=== PATIENT | female | born 1940 | race Caucasian/White ===

== ENCOUNTER 2021-11-20 12:55 | Inpatient (IN) | payer MEDICARE ==
[~2021-11-20] VITALS: Ht 152.4 cm; Wt 41.1 kg
[~2021-11-20 12:55] MED LIST: ASPI-1450 PO; CHL25 PO; CHOL100018 PO; LISI-894 PO; SIMV-261 PO
[2021-11-20] MEDS ORDERED: MIRT-89 PO (13:16)
[2021-11-20] MEDS ORDERED: MULT-1251 PO (13:16)
[2021-11-20] MEDS ORDERED: ALBUTEROL SULFATE HFA 90 MCG/PUFF 8 GM INHALER IH ONE (14:15)
[2021-11-20 14:48] LABS: BASOPHILS % (AUTO) 0.8 % (0.0-2.0); EOSINOPHILS % (AUTO) 0 % (1.0-6.0); HEMATOCRIT 43.9 % (36-46); HEMOGLOBIN 14.8 g/dL (12.0-16.0); LYMPHOCYTES # (AUTO) 0.5 K/uL (1.0-4.8); LYMPHOCYTES % (AUTO) 3.2 % (22.0-44.0); MEAN CORPUSCULAR HEMOGLOBIN 29.3 pg (26.0-34.0); MEAN CORPUSCULAR HGB CONC 33.7 G/dL (31.0-37.0); MEAN CORPUSCULAR VOLUME 87 fL (80-100); MONOCYTES # (AUTO) 1.6 K/uL (0.1-1.0); MONOCYTES % (AUTO) 9.6 % (2.0-9.0); NEUTROPHILS # (AUTO) 14.7 K/uL (1.8-7.7); PLATELET COUNT (AUTO) 427 K/uL (150-450); RED BLOOD CELL COUNT(AUTO) 5.06 MIL/uL (4.00-5.20); RED CELL DISTRIBUTION WIDTH 13.2 % (11.5-14.5)
[2021-11-20 14:52] LABS: NEUTROPHILS % (AUTO) 86.4 % (40.0-70.0)
[2021-11-20 15:02] LABS: ABG BASE EXCESS 0.9 mmol/L (-2.0-3.0); ABG CARBOXYHEMOGLOBIN 0.5 % (0.0-1.5); ABG HCO3 24.9 mmol/L (22.0-26.0); ABG METHEMOGLOBIN 0.1 % (0.0-1.5); ABG OXYGEN CONTENT 18.6 mL/dL (15.0-23.0); ABG OXYGEN SATURATION 92.4 % (95.0-98.0); ABG OXYHEMOGLOBIN 91.8 % (94.0-100.0); ABG PCO2 43 mmHg (35-45); ABG PH 7.394 (7.35-7.450); ABG TOTAL HEMOGLOBIN 14.4 G/dL (12.0-18.0); PO2, ARTERIAL BG 62.3 mmHg (71.0-79.0); SOURCE, BLOOD GAS ARTERIAL; TEMPERATURE, FAHRENHEIT, BG 98.3 FAHREN (96.0-98.6)
[2021-11-20 15:03] LABS: SITE, BLOOD GAS LFT RADIAL
[2021-11-20 15:04] LABS: D-DIMER 4.03 mg/L FEU (0.00-0.50); PROTHROMBIN TIME 10.3 SEC (9.4-11.6)
[2021-11-20 15:04] LABS: O2 DEVICE,BLOOD GAS NON REBREATHER (ROOM AIR)
[2021-11-20 15:11] LABS: CREATININE 2.62 mg/dL (0.60-1.30); POTASSIUM 4.3 mmol/L (3.5-5.1)
[2021-11-20 15:19] LABS: LACTIC ACID 1.7 mmol/L (0.4-2.0)
[2021-11-20 15:36] LABS: BILIRUBIN,TOTAL 0.8 mg/dL (0.1-1.0); C-REACTIVE PROTEIN QUANT 20.98 mg/dL (0.00-0.30); TOTAL PROTEIN, SERUM 8.8 g/dL (6.4-8.2)
[2021-11-20] MEDS ORDERED: CefTRIAXone 1 GM/DEXTROSE 50 ML IV ONE (16:30)
[2021-11-20] MEDS ORDERED: SODIUM CHLORIDE 0.9% 1,000 ML IV ONE ×3 (16:30→18:00)
[2021-11-20] MEDS ORDERED: AZITHROMYCIN 500 MG/NS 250 ML IV ONE (16:30)
[2021-11-20 17:18] LABS: INFLUENZA TYPE A NEGATIVE FOR TYPE A (NEGATIVE); INFLUENZA TYPE B NEGATIVE FOR TYPE B (NEGATIVE)
[2021-11-20] MEDS: ASPIRIN 81 MG CHEWABLE TABLET PO SCH (17:30)
[2021-11-20] MEDS ORDERED: DEXAMETHASONE SOD PHOS 4 MG/ML VIAL IVP SCH (17:30)
[2021-11-20] MEDS ORDERED: DEXAMETHASONE SOD PHOS 4 MG/ML 5 ML VIAL IVP ONE (17:45)
[2021-11-20] MEDS ORDERED: BENZONATATE 100 MG CAPSULE PO PRN (17:45)
[2021-11-20] MEDS ORDERED: ALBUTEROL SULFATE HFA 90 MCG/PUFF 8 GM INHALER IH PRN (17:45)
[2021-11-20] MEDS: APIXABAN 2.5 MG TABLET PO SCH (21:00)
[2021-11-20] MEDS ORDERED: HEPARIN SODIUM,PORCINE 5,000 UNITS/ML VIAL SQ SCH (21:00)
[2021-11-20 23:50] VITALS: BP 92/48
[2021-11-21] VITALS (11 sets, daily range): BP systolic 87–129; BP diastolic 40–73
[2021-11-21] MEDS: APIXABAN 2.5 MG TABLET PO SCH ×2 (09:01→20:05)
[2021-11-21] MEDS: ASPIRIN 81 MG CHEWABLE TABLET PO SCH (09:01)
[2021-11-21] MEDS: DEXAMETHASONE SOD PHOS 4 MG/ML VIAL IVP SCH (09:10)
[2021-11-21 12:52] LABS: BASOPHILS % (AUTO) 0.1 % (0.0-2.0); EOSINOPHILS % (AUTO) 0 % (1.0-6.0); HEMATOCRIT 36.3 % (36-46); HEMOGLOBIN 12.2 g/dL (12.0-16.0); LYMPHOCYTES # (AUTO) 0.6 K/uL (1.0-4.8); LYMPHOCYTES % (AUTO) 2.6 % (22.0-44.0); MEAN CORPUSCULAR HEMOGLOBIN 29.3 pg (26.0-34.0); MEAN CORPUSCULAR HGB CONC 33.6 G/dL (31.0-37.0); MEAN CORPUSCULAR VOLUME 87 fL (80-100); MONOCYTES # (AUTO) 0.5 K/uL (0.1-1.0); MONOCYTES % (AUTO) 2.4 % (2.0-9.0); NEUTROPHILS # (AUTO) 21.1 K/uL (1.8-7.7); NEUTROPHILS % (AUTO) 94.9 % (40.0-70.0); PLATELET COUNT (AUTO) 385 K/uL (150-450); RED BLOOD CELL COUNT(AUTO) 4.16 MIL/uL (4.00-5.20); RED CELL DISTRIBUTION WIDTH 13.2 % (11.5-14.5)
[2021-11-21 13:15] LABS: CREATININE 1.29 mg/dL (0.60-1.30); POTASSIUM 3.9 mmol/L (3.5-5.1)
[2021-11-21] MEDS: CefTRIAXone 1 GM/DEXTROSE 50 ML IV SCH (17:33)
[2021-11-21] MEDS: AZITHROMYCIN 500 MG/NS 250 ML IV SCH (17:33)
[2021-11-21] MEDS ORDERED: RINGERS SOLUTION,LACTATED 1,000 ML IV ONE ×3 (20:27→22:30)
[2021-11-21] MEDS ORDERED: RINGERS SOLUTION,LACTATED 500 ML IV ONE (21:45)
[2021-11-21] MEDS ORDERED: PNEUMOCOCCAL VACCINE POLYVALENT 0.5 ML VIAL [PPSV23] IM. ONE (22:00)
[2021-11-21] MEDS ORDERED: INFLUENZA VIRUS VACCINE QVS 2021-22 (6MO+)/PF 60 MCG/0.5 ML SYRINGE IM. ONE (22:00)
[2021-11-22 02:55] VITALS: BP 101/42
[2021-11-22 04:20] LABS: APPEARANCE,URINE CLEAR (CLEAR); BILIRUBIN,URINE NEGATIVE (NEGATIVE); GLUCOSE, URINE (UA) NEGATIVE (NEGATIVE); KETONES,URINE TRACE mg/dL (NEGATIVE); LEUKOCYTE ESTERASE ,URINE NEGATIVE (NEGATIVE); NITRATE,URINE NEGATIVE (NEGATIVE); OCCULT BLOOD,URINE NEGATIVE (NEGATIVE); PH,URINE 5.5 (5.0-8.0); PROTEIN,URINE NEGATIVE (NEGATIVE)
[2021-11-22 04:21] LABS: BACTERIA,URINE Rare /HPF (None Seen); RBC,URINE 0-2 /HPF (0-2); WBC,URINE 0-2 /HPF (0-5)
[2021-11-22 07:21] VITALS: BP 119/48
[2021-11-22 08:04] LABS: ALANINE AMINOTRANSFERASE 9 U/L (12-78); ALBUMIN 1.8 g/dL (3.4-5.0); ALKALINE PHOSPHATASE 84 U/L (46-116); ANION GAP 6 mmol/L (8-16); ASPARTATE AMINOTRANSFERASE 10 U/L (15-37); BILIRUBIN,TOTAL 0.3 mg/dL (0.1-1.0); CALCIUM, TOTAL 9.4 mg/dL (8.8-10.5); CARBON DIOXIDE 27 mmol/L (22-29); CHLORIDE 107 mmol/L (98-107); CREATININE 0.87 mg/dL (0.60-1.30); FERRITIN 479 ng/mL (8-252); GLUCOSE,RANDOM 107 mg/dL (70-110); POTASSIUM 4.1 mmol/L (3.5-5.1); SODIUM SERUM 140 mmol/L (136-145); TOTAL PROTEIN, SERUM 5.9 g/dL (6.4-8.2); UREA NITROGEN, BLOOD 83 mg/dL (7-18)
[2021-11-22 08:10] LABS: GLOMERULAR FILTR. RATE CALC > 60 mL/min (>60)
[2021-11-22] MEDS: ASPIRIN 81 MG CHEWABLE TABLET PO SCH (09:10)
[2021-11-22] MEDS: DEXAMETHASONE SOD PHOS 4 MG/ML VIAL IVP SCH (09:10)
[2021-11-22] MEDS: APIXABAN 2.5 MG TABLET PO SCH ×2 (09:10→20:10)
[2021-11-22 10:33] VITALS: BP 105/45
[2021-11-22] MEDS ORDERED: REMDESIVIR 200 MG in SODIUM CHLORIDE 0.9% 250 ML IV ONE (12:45)
[2021-11-22 14:50] VITALS: BP 102/48
[2021-11-22] MEDS ORDERED: ONDANSETRON HCL 4 MG/2 ML VIAL IVP PRN (15:30)
[2021-11-22] MEDS ORDERED: ACETAMINOPHEN 325 MG TABLET PO PRN (15:30)
[2021-11-22] MEDS: CefTRIAXone 1 GM/DEXTROSE 50 ML IV SCH (15:41)
[2021-11-22] MEDS: HEPARIN SODIUM,PORCINE 5,000 UNITS/ML VIAL SQ SCH ×2 (16:22→23:05)
[2021-11-22] MEDS: AZITHROMYCIN 500 MG/NS 250 ML IV SCH (17:43)
[2021-11-22 19:55] VITALS: BP 98/48
[2021-11-22] MEDS: FAMOTIDINE 20 MG TABLET PO SCH (20:10)
[2021-11-22] MEDS: DOCUSATE SODIUM 100 MG CAPSULE PO SCH (20:10)
[2021-11-22 23:55] VITALS: BP 137/59
[2021-11-23 05:37] VITALS: BP 126/59
[2021-11-23 07:06] LABS: BASOPHILS % (AUTO) 0.1 % (0.0-2.0); EOSINOPHILS % (AUTO) 0 % (1.0-6.0); HEMATOCRIT 33.8 % (36-46); HEMOGLOBIN 11.5 g/dL (12.0-16.0); LYMPHOCYTES # (AUTO) 0.6 K/uL (1.0-4.8); LYMPHOCYTES % (AUTO) 2.7 % (22.0-44.0); MEAN CORPUSCULAR HEMOGLOBIN 30.5 pg (26.0-34.0); MEAN CORPUSCULAR VOLUME 90 fL (80-100); MONOCYTES # (AUTO) 0.9 K/uL (0.1-1.0); NEUTROPHILS # (AUTO) 20.3 K/uL (1.8-7.7); PLATELET COUNT (AUTO) 414 K/uL (150-450); RED BLOOD CELL COUNT(AUTO) 3.77 MIL/uL (4.00-5.20)
[2021-11-23 07:14] LABS: NEUTROPHILS % (AUTO) 93.2 % (40.0-70.0)
[2021-11-23 07:22] VITALS: BP 116/54
[2021-11-23 07:41] LABS: ALANINE AMINOTRANSFERASE 9 U/L (12-78); ALBUMIN 1.9 g/dL (3.4-5.0); ALKALINE PHOSPHATASE 82 U/L (46-116); ANION GAP 7 mmol/L (8-16); ASPARTATE AMINOTRANSFERASE 11 U/L (15-37); BILIRUBIN,TOTAL 0.3 mg/dL (0.1-1.0); C-REACTIVE PROTEIN QUANT 10.69 mg/dL (0.00-0.30); CALCIUM, TOTAL 9.4 mg/dL (8.8-10.5); CARBON DIOXIDE 31 mmol/L (22-29); CHLORIDE 109 mmol/L (98-107); CREATINE KINASE, TOTAL ONLY 41 U/L (26-192); CREATININE 0.63 mg/dL (0.60-1.30); FERRITIN 410 ng/mL (8-252); GLUCOSE,RANDOM 119 mg/dL (70-110); LACTATE DEHYDROGENASE 170 U/L (81-234); POTASSIUM 4.1 mmol/L (3.5-5.1); SODIUM SERUM 147 mmol/L (136-145); TOTAL PROTEIN, SERUM 6.2 g/dL (6.4-8.2); UREA NITROGEN, BLOOD 66 mg/dL (7-18)
[2021-11-23 07:42] LABS: GLOMERULAR FILTR. RATE CALC > 60 mL/min (>60)
[2021-11-23] MEDS: DOCUSATE SODIUM 100 MG CAPSULE PO SCH ×2 (08:08→20:38)
[2021-11-23] MEDS: APIXABAN 2.5 MG TABLET PO SCH ×2 (08:09→20:38)
[2021-11-23] MEDS: DEXAMETHASONE SOD PHOS 4 MG/ML VIAL IVP SCH (08:10)
[2021-11-23] MEDS: HEPARIN SODIUM,PORCINE 5,000 UNITS/ML VIAL SQ SCH (08:10)
[2021-11-23] MEDS: ASPIRIN 81 MG CHEWABLE TABLET PO SCH (08:10)
[2021-11-23] MEDS: FAMOTIDINE 20 MG TABLET PO SCH ×2 (08:10→20:38)
[2021-11-23 11:08] VITALS: BP 124/52
[2021-11-23] MEDS: REMDESIVIR 100 MG in SODIUM CHLORIDE 0.9% 250 ML IV SCH (14:49)
[2021-11-23 16:46] VITALS: BP 111/63
[2021-11-23] MEDS: CefTRIAXone 1 GM/DEXTROSE 50 ML IV SCH (17:03)
[2021-11-23] MEDS: AZITHROMYCIN 500 MG/NS 250 ML IV SCH (18:31)
[2021-11-23 20:32] VITALS: BP 102/57
[2021-11-23] MEDS ORDERED: ENOXAPARIN SODIUM 40 MG/0.4 ML PF SYRINGE SQ SCH (21:00)
[2021-11-23 23:35] VITALS: BP 137/64
[2021-11-24 03:12] VITALS: BP 130/64
[2021-11-24 06:32] LABS: BASOPHILS % (AUTO) 0.1 % (0.0-2.0); EOSINOPHILS % (AUTO) 0 % (1.0-6.0); HEMATOCRIT 34.3 % (36-46); LYMPHOCYTES # (AUTO) 0.7 K/uL (1.0-4.8); MEAN CORPUSCULAR HEMOGLOBIN 31.9 pg (26.0-34.0); MEAN CORPUSCULAR HGB CONC 35.1 G/dL (31.0-37.0); MEAN CORPUSCULAR VOLUME 91 fL (80-100); MONOCYTES # (AUTO) 0.7 K/uL (0.1-1.0); MONOCYTES % (AUTO) 4.1 % (2.0-9.0); NEUTROPHILS # (AUTO) 15.6 K/uL (1.8-7.7); PLATELET COUNT (AUTO) 368 K/uL (150-450); RED BLOOD CELL COUNT(AUTO) 3.77 MIL/uL (4.00-5.20); RED CELL DISTRIBUTION WIDTH 13.2 % (11.5-14.5)
[2021-11-24 06:38] LABS: NEUTROPHILS % (AUTO) 91.8 % (40.0-70.0)
[2021-11-24 07:05] LABS: ALANINE AMINOTRANSFERASE 10 U/L (12-78); ALBUMIN 2.1 g/dL (3.4-5.0); ALKALINE PHOSPHATASE 82 U/L (46-116); ANION GAP 2 mmol/L (8-16); ASPARTATE AMINOTRANSFERASE 10 U/L (15-37); BILIRUBIN,TOTAL 0.3 mg/dL (0.1-1.0); C-REACTIVE PROTEIN QUANT 7.38 mg/dL (0.00-0.30); CALCIUM, TOTAL 9.3 mg/dL (8.8-10.5); CARBON DIOXIDE 35 mmol/L (22-29); CHLORIDE 110 mmol/L (98-107); CREATININE 0.64 mg/dL (0.60-1.30); FERRITIN 321 ng/mL (8-252); GLUCOSE,RANDOM 89 mg/dL (70-110); POTASSIUM 3.6 mmol/L (3.5-5.1); SODIUM SERUM 147 mmol/L (136-145); TOTAL PROTEIN, SERUM 6.4 g/dL (6.4-8.2); UREA NITROGEN, BLOOD 48 mg/dL (7-18)
[2021-11-24 07:06] LABS: GLOMERULAR FILTR. RATE CALC > 60 mL/min (>60)
[2021-11-24 07:21] VITALS: BP 139/72
[2021-11-24] MEDS: DEXAMETHASONE SOD PHOS 4 MG/ML VIAL IVP SCH (08:03)
[2021-11-24] MEDS: APIXABAN 2.5 MG TABLET PO SCH ×2 (08:03→20:50)
[2021-11-24] MEDS: ASPIRIN 81 MG CHEWABLE TABLET PO SCH (08:03)
[2021-11-24] MEDS: FAMOTIDINE 20 MG TABLET PO SCH ×2 (08:03→20:50)
[2021-11-24] MEDS: DOCUSATE SODIUM 100 MG CAPSULE PO SCH ×2 (08:03→21:00)
[2021-11-24 10:34] VITALS: BP 104/61
[2021-11-24 10:41] LABS: PHOSPHORUS 3.1 mg/dL (2.5-4.9)
[2021-11-24] MEDS ORDERED: SODIUM CHLORIDE 0.9% IV ONE (12:15)
[2021-11-24] MEDS ORDERED: TOCILIZUMAB IV ONE (12:15)
[2021-11-24] MEDS: REMDESIVIR 100 MG in SODIUM CHLORIDE 0.9% 250 ML IV SCH (13:42)
[2021-11-24 13:49] LABS: ABG BASE EXCESS 5.5 mmol/L (-2.0-3.0); ABG CARBOXYHEMOGLOBIN 0.6 % (0.0-1.5); ABG METHEMOGLOBIN 0.3 % (0.0-1.5); ABG OXYGEN CONTENT 14.9 mL/dL (15.0-23.0); ABG OXYHEMOGLOBIN 79.9 % (94.0-100.0); ABG PCO2 51 mmHg (35-45); ABG PH 7.393 (7.35-7.450); ABG TOTAL HEMOGLOBIN 13.3 G/dL (12.0-18.0); SOURCE, BLOOD GAS ARTERIAL; TEMPERATURE, FAHRENHEIT, BG 97.9 FAHREN (96.0-98.6)
[2021-11-24 14:06] LABS: ABG OXYGEN SATURATION 80.6 % (95.0-98.0); PO2, ARTERIAL BG 41.4 mmHg (71.0-79.0); SITE, BLOOD GAS RT RADIAL
[2021-11-24 14:07] LABS: O2 DEVICE,BLOOD GAS HFNC (ROOM AIR)
[2021-11-24 17:00] VITALS: BP 147/79
[2021-11-24 20:32] VITALS: BP 115/50
[2021-11-24 20:35] LABS: ABG BASE EXCESS 4.9 mmol/L (-2.0-3.0); ABG CARBOXYHEMOGLOBIN 0.4 % (0.0-1.5); ABG HCO3 27.9 mmol/L (22.0-26.0); ABG METHEMOGLOBIN 0.3 % (0.0-1.5); ABG OXYGEN CONTENT 13.2 mL/dL (15.0-23.0); ABG OXYHEMOGLOBIN 77.5 % (94.0-100.0); ABG PCO2 45 mmHg (35-45); ABG PH 7.431 (7.35-7.450); ABG TOTAL HEMOGLOBIN 12.1 G/dL (12.0-18.0); SOURCE, BLOOD GAS ARTERIAL; TEMPERATURE, FAHRENHEIT, BG 98.3 FAHREN (96.0-98.6)
[2021-11-24 20:36] LABS: PO2, ARTERIAL BG 37.3 mmHg (71.0-79.0)
[2021-11-24 20:37] LABS: SITE, BLOOD GAS RT BRACHIAL
[2021-11-24] MEDS: CefTRIAXone 1 GM/DEXTROSE 50 ML IV SCH (20:50)
[2021-11-24] MEDS: AZITHROMYCIN 500 MG/NS 250 ML IV SCH (21:53)
[2021-11-24 23:32] VITALS: BP 118/55
[2021-11-25 04:35] VITALS: BP 129/53
[2021-11-25 07:19] VITALS: BP 124/60
[2021-11-25] MEDS: FAMOTIDINE 20 MG TABLET PO SCH ×2 (08:34→21:11)
[2021-11-25] MEDS: APIXABAN 2.5 MG TABLET PO SCH ×2 (08:34→21:11)
[2021-11-25] MEDS: DOCUSATE SODIUM 100 MG CAPSULE PO SCH ×2 (08:34→21:11)
[2021-11-25] MEDS: ASPIRIN 81 MG CHEWABLE TABLET PO SCH (08:34)
[2021-11-25] MEDS: DEXAMETHASONE SOD PHOS 4 MG/ML VIAL IVP SCH (08:35)
[2021-11-25 08:40] LABS: ALANINE AMINOTRANSFERASE 7 U/L (12-78); ALKALINE PHOSPHATASE 73 U/L (46-116); ANION GAP 4 mmol/L (8-16); ASPARTATE AMINOTRANSFERASE 14 U/L (15-37); BILIRUBIN,TOTAL 0.2 mg/dL (0.1-1.0); CALCIUM, TOTAL 8.7 mg/dL (8.8-10.5); CARBON DIOXIDE 36 mmol/L (22-29); CHLORIDE 109 mmol/L (98-107); CREATININE 0.52 mg/dL (0.60-1.30); GLUCOSE,RANDOM 86 mg/dL (70-110); SODIUM SERUM 149 mmol/L (136-145); UREA NITROGEN, BLOOD 35 mg/dL (7-18)
[2021-11-25 08:45] LABS: GLOMERULAR FILTR. RATE CALC > 60 mL/min (>60)
[2021-11-25] MEDS ORDERED: POTASSIUM CHLORIDE 20 MEQ ER TABLET PO PRN (10:15)
[2021-11-25] MEDS ORDERED: POTASSIUM CHL 10 MEQ/WATER 50 ML IV PRN (10:15)
[2021-11-25 11:14] VITALS: BP 133/58
[2021-11-25] MEDS: REMDESIVIR 100 MG in SODIUM CHLORIDE 0.9% 250 ML IV SCH (13:00)
[2021-11-25 15:07] LABS: S PNEUMO SOURCE Urine; STREP PNEUMONIAE AG URINE Negative (Negative)
[2021-11-25] MEDS: CefTRIAXone 1 GM/DEXTROSE 50 ML IV SCH (15:46)
[2021-11-25] MEDS: AZITHROMYCIN 500 MG/NS 250 ML IV SCH (17:02)
[2021-11-25 19:30] VITALS: BP 129/59
[2021-11-25 23:50] VITALS: BP 122/64
[2021-11-26 03:50] VITALS: BP 118/60
[2021-11-26 06:48] LABS: BASOPHILS % (AUTO) 0.1 % (0.0-2.0); EOSINOPHILS % (AUTO) 0 % (1.0-6.0); HEMATOCRIT 35.9 % (36-46); HEMOGLOBIN 12.5 g/dL (12.0-16.0); LYMPHOCYTES # (AUTO) 0.8 K/uL (1.0-4.8); LYMPHOCYTES % (AUTO) 5.1 % (22.0-44.0); MEAN CORPUSCULAR HEMOGLOBIN 31.1 pg (26.0-34.0); MEAN CORPUSCULAR HGB CONC 34.9 G/dL (31.0-37.0); MEAN CORPUSCULAR VOLUME 89 fL (80-100); MONOCYTES # (AUTO) 0.6 K/uL (0.1-1.0); MONOCYTES % (AUTO) 3.8 % (2.0-9.0); NEUTROPHILS # (AUTO) 14.8 K/uL (1.8-7.7); PLATELET COUNT (AUTO) 319 K/uL (150-450); RED BLOOD CELL COUNT(AUTO) 4.03 MIL/uL (4.00-5.20); RED CELL DISTRIBUTION WIDTH 13.2 % (11.5-14.5)
[2021-11-26 07:12] LABS: ALANINE AMINOTRANSFERASE 12 U/L (12-78); ALBUMIN 2.2 g/dL (3.4-5.0); ALKALINE PHOSPHATASE 80 U/L (46-116); ANION GAP 1 mmol/L (8-16); ASPARTATE AMINOTRANSFERASE 19 U/L (15-37); BILIRUBIN,TOTAL 0.3 mg/dL (0.1-1.0); C-REACTIVE PROTEIN QUANT 5.87 mg/dL (0.00-0.30); CALCIUM, TOTAL 9.1 mg/dL (8.8-10.5); CARBON DIOXIDE 35 mmol/L (22-29); CHLORIDE 107 mmol/L (98-107); CREATININE 0.68 mg/dL (0.60-1.30); FERRITIN 354 ng/mL (8-252); GLUCOSE,RANDOM 93 mg/dL (70-110); POTASSIUM 5.1 mmol/L (3.5-5.1); SODIUM SERUM 143 mmol/L (136-145); TOTAL PROTEIN, SERUM 6.3 g/dL (6.4-8.2); UREA NITROGEN, BLOOD 36 mg/dL (7-18)
[2021-11-26 07:13] LABS: GLOMERULAR FILTR. RATE CALC > 60 mL/min (>60)
[2021-11-26 07:17] VITALS: BP 137/58
[2021-11-26] MEDS: DOCUSATE SODIUM 100 MG CAPSULE PO SCH ×2 (08:50→20:36)
[2021-11-26] MEDS: ASPIRIN 81 MG CHEWABLE TABLET PO SCH (08:50)
[2021-11-26] MEDS: FAMOTIDINE 20 MG TABLET PO SCH ×2 (08:51→20:36)
[2021-11-26] MEDS: APIXABAN 2.5 MG TABLET PO SCH ×2 (08:52→20:36)
[2021-11-26] MEDS: DEXAMETHASONE SOD PHOS 4 MG/ML VIAL IVP SCH (08:52)
[2021-11-26 11:17] VITALS: BP 130/58
[2021-11-26] MEDS: REMDESIVIR 100 MG in SODIUM CHLORIDE 0.9% 250 ML IV SCH (13:17)
[2021-11-26 15:34] VITALS: BP 131/60
[2021-11-26] MEDS: CefTRIAXone 1 GM/DEXTROSE 50 ML IV SCH (16:28)
[2021-11-26] MEDS: AZITHROMYCIN 500 MG/NS 250 ML IV SCH (16:29)
[2021-11-26 19:53] VITALS: BP 145/68
[2021-11-27 00:08] VITALS: BP 118/44
[2021-11-27 05:54] VITALS: BP 121/72
[2021-11-27 08:08] VITALS: BP 115/55
[2021-11-27] MEDS: ASPIRIN 81 MG CHEWABLE TABLET PO SCH (08:20)
[2021-11-27] MEDS: DOCUSATE SODIUM 100 MG CAPSULE PO SCH ×2 (08:20→20:15)
[2021-11-27] MEDS: APIXABAN 2.5 MG TABLET PO SCH ×2 (08:20→20:15)
[2021-11-27] MEDS: FAMOTIDINE 20 MG TABLET PO SCH ×2 (08:20→20:15)
[2021-11-27] MEDS: DEXAMETHASONE SOD PHOS 4 MG/ML VIAL IVP SCH (08:21)
[2021-11-27 11:18] VITALS: BP 113/70
[2021-11-27 16:19] VITALS: BP 131/70
[2021-11-27] MEDS: CefTRIAXone 1 GM/DEXTROSE 50 ML IV SCH (16:22)
[2021-11-27] MEDS: AZITHROMYCIN 500 MG/NS 250 ML IV SCH (18:25)
[2021-11-27 21:10] VITALS: BP 127/63
[2021-11-28 01:44] VITALS: BP 130/49
[2021-11-28] MEDS: DOCUSATE SODIUM 100 MG CAPSULE PO SCH ×2 (08:02→20:09)
[2021-11-28] MEDS: APIXABAN 2.5 MG TABLET PO SCH ×2 (08:02→20:09)
[2021-11-28] MEDS: FAMOTIDINE 20 MG TABLET PO SCH ×2 (08:03→20:09)
[2021-11-28] MEDS: DEXAMETHASONE SOD PHOS 4 MG/ML VIAL IVP SCH (08:04)
[2021-11-28] MEDS: ASPIRIN 81 MG CHEWABLE TABLET PO SCH (08:04)
[2021-11-28 08:25] VITALS: BP 132/57
[2021-11-28 08:30] LABS: ALANINE AMINOTRANSFERASE 13 U/L (12-78); ALBUMIN 2.4 g/dL (3.4-5.0); ALKALINE PHOSPHATASE 79 U/L (46-116); ANION GAP 0 mmol/L (8-16); ASPARTATE AMINOTRANSFERASE 18 U/L (15-37); BILIRUBIN,TOTAL 0.4 mg/dL (0.1-1.0); C-REACTIVE PROTEIN QUANT 2.22 mg/dL (0.00-0.30); CALCIUM, TOTAL 8.8 mg/dL (8.8-10.5); CARBON DIOXIDE 39 mmol/L (22-29); CHLORIDE 106 mmol/L (98-107); FERRITIN 364 ng/mL (8-252); GLUCOSE,RANDOM 73 mg/dL (70-110); POTASSIUM 3.8 mmol/L (3.5-5.1); SODIUM SERUM 145 mmol/L (136-145); UREA NITROGEN, BLOOD 29 mg/dL (7-18)
[2021-11-28 08:32] LABS: GLOMERULAR FILTR. RATE CALC > 60 mL/min (>60)
[2021-11-28 08:44] LABS: BASOPHILS % (AUTO) 0.2 % (0.0-2.0); EOSINOPHILS % (AUTO) 0.3 % (1.0-6.0); HEMATOCRIT 38.2 % (36-46); HEMOGLOBIN 12.6 g/dL (12.0-16.0); LYMPHOCYTES # (AUTO) 0.8 K/uL (1.0-4.8); LYMPHOCYTES % (AUTO) 5.6 % (22.0-44.0); MEAN CORPUSCULAR HEMOGLOBIN 29.1 pg (26.0-34.0); MEAN CORPUSCULAR HGB CONC 33.1 G/dL (31.0-37.0); MEAN CORPUSCULAR VOLUME 88 fL (80-100); MONOCYTES # (AUTO) 0.5 K/uL (0.1-1.0); MONOCYTES % (AUTO) 3.7 % (2.0-9.0); NEUTROPHILS # (AUTO) 12.9 K/uL (1.8-7.7); PLATELET COUNT (AUTO) 293 K/uL (150-450); RED BLOOD CELL COUNT(AUTO) 4.34 MIL/uL (4.00-5.20)
[2021-11-28 08:46] LABS: NEUTROPHILS % (AUTO) 90.2 % (40.0-70.0)
[2021-11-28 11:06] LABS: LEGIONELLA PNEUMO AG URINE Negative (Negative)
[2021-11-28 12:01] VITALS: BP 112/47
[2021-11-28 12:02] LABS: ALANINE AMINOTRANSFERASE 13 U/L (12-78); ALBUMIN 2.2 g/dL (3.4-5.0); ALKALINE PHOSPHATASE 72 U/L (46-116); ANION GAP 4 mmol/L (8-16); ASPARTATE AMINOTRANSFERASE 18 U/L (15-37); BILIRUBIN,TOTAL 0.3 mg/dL (0.1-1.0); CALCIUM, TOTAL 8.5 mg/dL (8.8-10.5); CARBON DIOXIDE 37 mmol/L (22-29); CHLORIDE 105 mmol/L (98-107); CREATININE 0.59 mg/dL (0.60-1.30); GLOMERULAR FILTR. RATE CALC > 60 mL/min (>60); GLUCOSE,RANDOM 186 mg/dL (70-110); POTASSIUM 3.5 mmol/L (3.5-5.1); SODIUM SERUM 146 mmol/L (136-145); TOTAL PROTEIN, SERUM 5.5 g/dL (6.4-8.2); UREA NITROGEN, BLOOD 30 mg/dL (7-18)
[2021-11-28 16:17] VITALS: BP 126/75
[2021-11-28 16:59] LABS: ABG BASE EXCESS 12.8 mmol/L (-2.0-3.0); ABG HCO3 35.2 mmol/L (22.0-26.0); ABG METHEMOGLOBIN 0.3 % (0.0-1.5); ABG OXYGEN CONTENT 16.7 mL/dL (15.0-23.0); ABG OXYGEN SATURATION 97.9 % (95.0-98.0); ABG OXYHEMOGLOBIN 97.6 % (94.0-100.0); ABG PCO2 45 mmHg (35-45); ABG PH 7.517 (7.35-7.450); ABG TOTAL HEMOGLOBIN 12.1 G/dL (12.0-18.0); PO2, ARTERIAL BG 100.3 mmHg (71.0-79.0); SOURCE, BLOOD GAS ARTERIAL; TEMPERATURE, FAHRENHEIT, BG 98.6 FAHREN (96.0-98.6)
[2021-11-28 17:00] LABS: SITE, BLOOD GAS LFT RADIAL
[2021-11-28 17:01] LABS: ABG A-A DIFF O2 379.4 mmHg (10-20.0); O2 DEVICE,BLOOD GAS HFNC (ROOM AIR)
[2021-11-28 19:57] VITALS: BP 110/52
[2021-11-28 23:45] VITALS: BP 119/51
[2021-11-29 07:07] VITALS: BP 131/55
[2021-11-29] MEDS: DOCUSATE SODIUM 100 MG CAPSULE PO SCH ×2 (08:06→21:18)
[2021-11-29] MEDS: APIXABAN 2.5 MG TABLET PO SCH ×2 (08:07→21:18)
[2021-11-29] MEDS: DEXAMETHASONE SOD PHOS 4 MG/ML VIAL IVP SCH (08:07)
[2021-11-29] MEDS: ASPIRIN 81 MG CHEWABLE TABLET PO SCH (08:07)
[2021-11-29] MEDS: MULTIVITAMINS WITH MINERALS, THERAPEUTIC TABLET PO SCH (08:07)
[2021-11-29] MEDS: FAMOTIDINE 20 MG TABLET PO SCH ×2 (08:07→21:18)
[2021-11-29] MEDS: THIAMINE 100 MG TABLET PO SCH (08:08)
[2021-11-29] MEDS: AMPICILLIN SODIUM/SULBACTAM NA 3 GM in SODIUM CHLORIDE 0.9% 100 ML IV SCH ×3 (10:45→21:18)
[2021-11-29 11:05] VITALS: BP 99/38
[2021-11-29 15:03] VITALS: BP 108/56
[2021-11-29] MEDS: NYSTATIN 500,000 UNITS/5 ML SUSPENSION UDCUP PO SCH ×2 (16:30→23:50)
[2021-11-29 21:09] VITALS: BP 109/49
[2021-11-30] MEDS: AMPICILLIN SODIUM/SULBACTAM NA 3 GM in SODIUM CHLORIDE 0.9% 100 ML IV SCH ×4 (03:54→20:47)
[2021-11-30 06:19] LABS: BASOPHILS % (AUTO) 0.2 % (0.0-2.0); EOSINOPHILS % (AUTO) 0.6 % (1.0-6.0); LYMPHOCYTES # (AUTO) 1.2 K/uL (1.0-4.8); LYMPHOCYTES % (AUTO) 12.2 % (22.0-44.0); MEAN CORPUSCULAR HEMOGLOBIN 29.2 pg (26.0-34.0); MEAN CORPUSCULAR HGB CONC 33.4 G/dL (31.0-37.0); MEAN CORPUSCULAR VOLUME 88 fL (80-100); MONOCYTES # (AUTO) 0.7 K/uL (0.1-1.0); MONOCYTES % (AUTO) 7.5 % (2.0-9.0); NEUTROPHILS # (AUTO) 7.6 K/uL (1.8-7.7); NEUTROPHILS % (AUTO) 79.5 % (40.0-70.0); PLATELET COUNT (AUTO) 244 K/uL (150-450); RED BLOOD CELL COUNT(AUTO) 4.11 MIL/uL (4.00-5.20)
[2021-11-30 06:41] LABS: ALANINE AMINOTRANSFERASE 13 U/L (12-78); ALBUMIN 2.3 g/dL (3.4-5.0); ALKALINE PHOSPHATASE 68 U/L (46-116); ANION GAP -2 mmol/L (8-16); ASPARTATE AMINOTRANSFERASE 17 U/L (15-37); BILIRUBIN,TOTAL 0.6 mg/dL (0.1-1.0); CALCIUM, TOTAL 8.4 mg/dL (8.8-10.5); CARBON DIOXIDE 40 mmol/L (22-29); CHLORIDE 106 mmol/L (98-107); CREATININE 0.61 mg/dL (0.60-1.30); GLUCOSE,RANDOM 81 mg/dL (70-110); POTASSIUM 3.5 mmol/L (3.5-5.1); SODIUM SERUM 144 mmol/L (136-145); TOTAL PROTEIN, SERUM 5.5 g/dL (6.4-8.2); UREA NITROGEN, BLOOD 29 mg/dL (7-18)
[2021-11-30 07:11] LABS: GLOMERULAR FILTR. RATE CALC > 60 mL/min (>60)
[2021-11-30 07:27] VITALS: BP 104/48
[2021-11-30] MEDS: APIXABAN 2.5 MG TABLET PO SCH ×2 (08:29→20:42)
[2021-11-30] MEDS: FAMOTIDINE 20 MG TABLET PO SCH ×2 (08:29→20:47)
[2021-11-30] MEDS: DEXAMETHASONE SOD PHOS 4 MG/ML VIAL IVP SCH (08:29)
[2021-11-30] MEDS: ASPIRIN 81 MG CHEWABLE TABLET PO SCH (08:29)
[2021-11-30] MEDS: DOCUSATE SODIUM 100 MG CAPSULE PO SCH ×2 (08:29→20:42)
[2021-11-30] MEDS: MULTIVITAMINS WITH MINERALS, THERAPEUTIC TABLET PO SCH (08:29)
[2021-11-30] MEDS: NYSTATIN 500,000 UNITS/5 ML SUSPENSION UDCUP PO SCH ×2 (08:30→16:06)
[2021-11-30] MEDS: THIAMINE 100 MG TABLET PO SCH (08:30)
[2021-11-30 10:30] VITALS: BP 108/47
[2021-11-30 16:17] VITALS: BP 106/48
[2021-11-30 19:56] VITALS: BP 103/41
[2021-12-01] VITALS (7 sets, daily range): BP systolic 99–122; BP diastolic 47–56
[2021-12-01] MEDS: NYSTATIN 500,000 UNITS/5 ML SUSPENSION UDCUP PO SCH ×3 (01:01→15:37)
[2021-12-01] MEDS: AMPICILLIN SODIUM/SULBACTAM NA 3 GM in SODIUM CHLORIDE 0.9% 100 ML IV SCH ×4 (04:06→21:07)
[2021-12-01] MEDS: ASPIRIN 81 MG CHEWABLE TABLET PO SCH (08:20)
[2021-12-01] MEDS: MULTIVITAMINS WITH MINERALS, THERAPEUTIC TABLET PO SCH (08:20)
[2021-12-01] MEDS: APIXABAN 2.5 MG TABLET PO SCH ×2 (08:20→21:07)
[2021-12-01] MEDS: DOCUSATE SODIUM 100 MG CAPSULE PO SCH ×2 (08:21→21:07)
[2021-12-01] MEDS: FAMOTIDINE 20 MG TABLET PO SCH ×2 (08:21→21:07)
[2021-12-01] MEDS: THIAMINE 100 MG TABLET PO SCH (08:21)
[2021-12-01] MEDS: DEXAMETHASONE SOD PHOS 4 MG/ML VIAL IVP SCH (08:21)
[2021-12-01 08:40] LABS: ANION GAP 5 mmol/L (8-16); CARBON DIOXIDE 40 mmol/L (22-29); CHLORIDE 104 mmol/L (98-107); GLUCOSE,RANDOM 92 mg/dL (70-110); POTASSIUM 3.8 mmol/L (3.5-5.1); SODIUM SERUM 149 mmol/L (136-145); UREA NITROGEN, BLOOD 28 mg/dL (7-18)
[2021-12-01 08:41] LABS: CALCIUM, TOTAL 8.4 mg/dL (8.8-10.5)
[2021-12-01 08:42] LABS: GLOMERULAR FILTR. RATE CALC > 60 mL/min (>60)
[2021-12-01 08:44] LABS: BASOPHILS % (AUTO) 0.4 % (0.0-2.0); EOSINOPHILS % (AUTO) 0.7 % (1.0-6.0); HEMATOCRIT 35.4 % (36-46); LYMPHOCYTES # (AUTO) 1.2 K/uL (1.0-4.8); LYMPHOCYTES % (AUTO) 13.1 % (22.0-44.0); MEAN CORPUSCULAR HEMOGLOBIN 29.6 pg (26.0-34.0); MEAN CORPUSCULAR VOLUME 87 fL (80-100); MONOCYTES # (AUTO) 0.7 K/uL (0.1-1.0); MONOCYTES % (AUTO) 7.3 % (2.0-9.0); NEUTROPHILS % (AUTO) 78.5 % (40.0-70.0); PLATELET COUNT (AUTO) 252 K/uL (150-450); RED BLOOD CELL COUNT(AUTO) 4.07 MIL/uL (4.00-5.20); RED CELL DISTRIBUTION WIDTH 12.8 % (11.5-14.5)
[2021-12-01] MEDS ORDERED: DEXTROSE 5%-WATER 1,000 ML IV ONE (13:15)
[2021-12-02] MEDS: NYSTATIN 500,000 UNITS/5 ML SUSPENSION UDCUP PO SCH ×3 (01:29→15:36)
[2021-12-02 03:45] VITALS: BP 114/51
[2021-12-02] MEDS: AMPICILLIN SODIUM/SULBACTAM NA 3 GM in SODIUM CHLORIDE 0.9% 100 ML IV SCH ×4 (04:26→22:16)
[2021-12-02 07:34] LABS: BASOPHILS % (AUTO) 0.3 % (0.0-2.0); EOSINOPHILS % (AUTO) 0.8 % (1.0-6.0); HEMATOCRIT 32.9 % (36-46); HEMOGLOBIN 11.1 g/dL (12.0-16.0); LYMPHOCYTES # (AUTO) 1.4 K/uL (1.0-4.8); MEAN CORPUSCULAR HEMOGLOBIN 29.3 pg (26.0-34.0); MEAN CORPUSCULAR HGB CONC 33.8 G/dL (31.0-37.0); MEAN CORPUSCULAR VOLUME 87 fL (80-100); MONOCYTES # (AUTO) 0.6 K/uL (0.1-1.0); MONOCYTES % (AUTO) 7.5 % (2.0-9.0); NEUTROPHILS # (AUTO) 6.3 K/uL (1.8-7.7); NEUTROPHILS % (AUTO) 74.4 % (40.0-70.0); PLATELET COUNT (AUTO) 264 K/uL (150-450); RED BLOOD CELL COUNT(AUTO) 3.81 MIL/uL (4.00-5.20); RED CELL DISTRIBUTION WIDTH 12.9 % (11.5-14.5)
[2021-12-02 07:50] VITALS: BP 106/51
[2021-12-02 07:56] LABS: ANION GAP 3 mmol/L (8-16); CALCIUM, TOTAL 8.2 mg/dL (8.8-10.5); CARBON DIOXIDE 36 mmol/L (22-29); CHLORIDE 105 mmol/L (98-107); CREATININE 0.59 mg/dL (0.60-1.30); GLUCOSE,RANDOM 84 mg/dL (70-110); POTASSIUM 3.9 mmol/L (3.5-5.1); SODIUM SERUM 144 mmol/L (136-145); UREA NITROGEN, BLOOD 24 mg/dL (7-18)
[2021-12-02 08:00] LABS: GLOMERULAR FILTR. RATE CALC > 60 mL/min (>60)
[2021-12-02] MEDS: DEXAMETHASONE SOD PHOS 4 MG/ML VIAL IVP SCH (08:28)
[2021-12-02] MEDS: APIXABAN 2.5 MG TABLET PO SCH ×2 (08:29→22:16)
[2021-12-02] MEDS: DOCUSATE SODIUM 100 MG CAPSULE PO SCH ×2 (08:29→22:16)
[2021-12-02] MEDS: MULTIVITAMINS WITH MINERALS, THERAPEUTIC TABLET PO SCH (08:29)
[2021-12-02] MEDS: ASPIRIN 81 MG CHEWABLE TABLET PO SCH (08:29)
[2021-12-02] MEDS: THIAMINE 100 MG TABLET PO SCH (08:29)
[2021-12-02] MEDS: FAMOTIDINE 20 MG TABLET PO SCH ×2 (08:29→22:16)
[2021-12-02 11:53] VITALS: BP 109/47
[2021-12-02 16:45] VITALS: BP 99/42
[2021-12-02 20:15] VITALS: BP 97/43
[2021-12-03 00:21] VITALS: BP 97/44
[2021-12-03] MEDS: NYSTATIN 500,000 UNITS/5 ML SUSPENSION UDCUP PO SCH ×4 (00:28→23:44)
[2021-12-03] MEDS: AMPICILLIN SODIUM/SULBACTAM NA 3 GM in SODIUM CHLORIDE 0.9% 100 ML IV SCH ×4 (03:52→22:00)
[2021-12-03 04:25] VITALS: BP 111/47
[2021-12-03 06:05] LABS: MAGNESIUM 1.9 mg/dL (1.80-2.40); PHOSPHORUS 2.9 mg/dL (2.5-4.9)
[2021-12-03] MEDS: MULTIVITAMINS WITH MINERALS, THERAPEUTIC TABLET PO SCH (09:32)
[2021-12-03] MEDS: DOCUSATE SODIUM 100 MG CAPSULE PO SCH ×2 (09:32→20:36)
[2021-12-03] MEDS: ASPIRIN 81 MG CHEWABLE TABLET PO SCH (09:32)
[2021-12-03] MEDS: APIXABAN 2.5 MG TABLET PO SCH ×2 (09:33→20:36)
[2021-12-03] MEDS: FAMOTIDINE 20 MG TABLET PO SCH ×2 (09:33→20:36)
[2021-12-03] MEDS: DEXAMETHASONE SOD PHOS 4 MG/ML VIAL IVP SCH (09:33)
[2021-12-03] MEDS: THIAMINE 100 MG TABLET PO SCH (09:33)
[2021-12-03 10:12] VITALS: BP 96/40
[2021-12-03 19:40] VITALS: BP 105/49
[2021-12-03 23:50] VITALS: BP 114/48
[2021-12-04] MEDS: AMPICILLIN SODIUM/SULBACTAM NA 3 GM in SODIUM CHLORIDE 0.9% 100 ML IV SCH ×2 (03:52→09:59)
[2021-12-04 04:10] VITALS: BP 96/44
[2021-12-04] MEDS: NYSTATIN 500,000 UNITS/5 ML SUSPENSION UDCUP PO SCH ×2 (09:00→16:22)
[2021-12-04] MEDS: FAMOTIDINE 20 MG TABLET PO SCH ×2 (09:00→21:30)
[2021-12-04] MEDS: DEXAMETHASONE SOD PHOS 4 MG/ML VIAL IVP SCH (09:01)
[2021-12-04] MEDS: APIXABAN 2.5 MG TABLET PO SCH ×2 (09:01→21:30)
[2021-12-04] MEDS: THIAMINE 100 MG TABLET PO SCH (09:01)
[2021-12-04] MEDS: DOCUSATE SODIUM 100 MG CAPSULE PO SCH ×2 (09:02→21:30)
[2021-12-04] MEDS: ASPIRIN 81 MG CHEWABLE TABLET PO SCH (09:02)
[2021-12-04] MEDS: MULTIVITAMINS WITH MINERALS, THERAPEUTIC TABLET PO SCH (09:02)
[2021-12-04 09:15] VITALS: BP 117/53
[2021-12-04 12:52] VITALS: BP 95/45
[2021-12-04 16:17] VITALS: BP 98/56
[2021-12-04 19:35] VITALS: BP 101/51
[2021-12-04 23:40] VITALS: BP 100/44
[2021-12-05] MEDS ORDERED: SODIUM CHLORIDE 0.9% 1,000 ML ONE (00:42)
[2021-12-05 04:10] VITALS: BP 90/62
[2021-12-05] MEDS: FAMOTIDINE 20 MG TABLET PO SCH ×2 (08:40→20:48)
[2021-12-05] MEDS: APIXABAN 2.5 MG TABLET PO SCH ×2 (08:41→20:49)
[2021-12-05] MEDS: THIAMINE 100 MG TABLET PO SCH (08:41)
[2021-12-05] MEDS: MULTIVITAMINS WITH MINERALS, THERAPEUTIC TABLET PO SCH (08:41)
[2021-12-05] MEDS: ASPIRIN 81 MG CHEWABLE TABLET PO SCH (08:41)
[2021-12-05] MEDS: NYSTATIN 500,000 UNITS/5 ML SUSPENSION UDCUP PO SCH ×3 (08:41→16:37)
[2021-12-05] MEDS: DOCUSATE SODIUM 100 MG CAPSULE PO SCH ×2 (08:41→20:49)
[2021-12-05] MEDS: DEXAMETHASONE SOD PHOS 4 MG/ML VIAL IVP SCH (08:42)
[2021-12-05 09:01] VITALS: BP 80/32
[2021-12-05 15:12] VITALS: BP 98/66
[2021-12-05] MEDS: MIRTAZAPINE 15 MG TABLET PO SCH (20:48)
[2021-12-05 22:26] VITALS: BP 92/47
[2021-12-06 02:35] VITALS: BP 94/43
[2021-12-06 07:12] VITALS: BP 85/38
[2021-12-06] MEDS: DOCUSATE SODIUM 100 MG CAPSULE PO SCH ×2 (08:24→20:38)
[2021-12-06] MEDS: FAMOTIDINE 20 MG TABLET PO SCH ×2 (08:24→20:38)
[2021-12-06] MEDS: APIXABAN 2.5 MG TABLET PO SCH ×2 (08:24→20:38)
[2021-12-06] MEDS: THIAMINE 100 MG TABLET PO SCH (08:24)
[2021-12-06] MEDS: MULTIVITAMINS WITH MINERALS, THERAPEUTIC TABLET PO SCH (08:24)
[2021-12-06] MEDS: ASPIRIN 81 MG CHEWABLE TABLET PO SCH (08:24)
[2021-12-06] MEDS: NYSTATIN 500,000 UNITS/5 ML SUSPENSION UDCUP PO SCH ×3 (08:24→15:04)
[2021-12-06 08:31] VITALS: BP 89/35
[2021-12-06] MEDS ORDERED: SODIUM CHLORIDE 0.9% 1,000 ML IV ONE (12:15)
[2021-12-06 19:43] VITALS: BP 90/45
[2021-12-06] MEDS: MIRTAZAPINE 15 MG TABLET PO SCH (20:38)
[2021-12-07 00:04] VITALS: BP 86/40
[2021-12-07 05:50] VITALS: BP 103/42
[2021-12-07] MEDS: NYSTATIN 500,000 UNITS/5 ML SUSPENSION UDCUP PO SCH ×3 (08:00→17:29)
[2021-12-07 08:14] VITALS: BP 119/43
[2021-12-07] MEDS: DOCUSATE SODIUM 100 MG CAPSULE PO SCH ×2 (08:42→21:29)
[2021-12-07] MEDS: APIXABAN 2.5 MG TABLET PO SCH ×2 (08:42→21:29)
[2021-12-07] MEDS: MULTIVITAMINS WITH MINERALS, THERAPEUTIC TABLET PO SCH (08:42)
[2021-12-07] MEDS: ASPIRIN 81 MG CHEWABLE TABLET PO SCH (08:43)
[2021-12-07] MEDS: FAMOTIDINE 20 MG TABLET PO SCH ×2 (08:43→21:28)
[2021-12-07] MEDS: THIAMINE 100 MG TABLET PO SCH (08:43)
[2021-12-07 11:34] VITALS: BP 99/42
[2021-12-07 15:36] VITALS: BP 101/52
[2021-12-07 20:09] VITALS: BP 97/41
[2021-12-07] MEDS: MIRTAZAPINE 15 MG TABLET PO SCH (21:29)
[2021-12-08] MEDS: NYSTATIN 500,000 UNITS/5 ML SUSPENSION UDCUP PO SCH ×4 (00:23→23:56)
[2021-12-08 03:54] VITALS: BP 100/43
[2021-12-08 08:17] VITALS: BP 99/47
[2021-12-08] MEDS: ASPIRIN 81 MG CHEWABLE TABLET PO SCH (08:23)
[2021-12-08] MEDS: FAMOTIDINE 20 MG TABLET PO SCH ×2 (08:23→20:18)
[2021-12-08] MEDS: APIXABAN 2.5 MG TABLET PO SCH ×2 (08:23→20:18)
[2021-12-08] MEDS: THIAMINE 100 MG TABLET PO SCH (08:23)
[2021-12-08] MEDS: DOCUSATE SODIUM 100 MG CAPSULE PO SCH ×2 (08:24→20:18)
[2021-12-08] MEDS: MULTIVITAMINS WITH MINERALS, THERAPEUTIC TABLET PO SCH (08:24)
[2021-12-08 12:00] VITALS: BP 93/44
[2021-12-08 16:52] VITALS: BP 90/45
[2021-12-08] MEDS: MIRTAZAPINE 15 MG TABLET PO SCH (20:18)
[2021-12-08 21:11] VITALS: BP 107/46
[2021-12-09] VITALS (7 sets, daily range): BP systolic 84–117; BP diastolic 35–51
[2021-12-09] MEDS: NYSTATIN 500,000 UNITS/5 ML SUSPENSION UDCUP PO SCH ×2 (08:41→16:14)
[2021-12-09] MEDS: APIXABAN 2.5 MG TABLET PO SCH ×2 (08:41→20:55)
[2021-12-09] MEDS: MULTIVITAMINS WITH MINERALS, THERAPEUTIC TABLET PO SCH (08:41)
[2021-12-09] MEDS: THIAMINE 100 MG TABLET PO SCH (08:41)
[2021-12-09] MEDS: ASPIRIN 81 MG CHEWABLE TABLET PO SCH (08:42)
[2021-12-09] MEDS: DOCUSATE SODIUM 100 MG CAPSULE PO SCH ×2 (08:42→20:55)
[2021-12-09] MEDS: FAMOTIDINE 20 MG TABLET PO SCH ×2 (08:42→20:55)
[2021-12-09 14:07] LABS: ABG BASE EXCESS 9.1 mmol/L (-2.0-3.0); ABG CARBOXYHEMOGLOBIN 0.5 % (0.0-1.5); ABG HCO3 32.6 mmol/L (22.0-26.0); ABG METHEMOGLOBIN 0.3 % (0.0-1.5); ABG OXYGEN CONTENT 17.2 mL/dL (15.0-23.0); ABG OXYGEN SATURATION 99.3 % (95.0-98.0); ABG OXYHEMOGLOBIN 98.5 % (94.0-100.0); ABG PCO2 36 mmHg (35-45); ABG PH 7.562 (7.35-7.450); ABG TOTAL HEMOGLOBIN 12.2 G/dL (12.0-18.0); SOURCE, BLOOD GAS ARTERIAL; TEMPERATURE, FAHRENHEIT, BG 98.2 FAHREN (96.0-98.6)
[2021-12-09 17:16] LABS: SITE, BLOOD GAS LFT RADIAL
[2021-12-09] MEDS: MIRTAZAPINE 15 MG TABLET PO SCH (20:55)
[2021-12-10] VITALS: BP 106/63
[2021-12-10] MEDS: NYSTATIN 500,000 UNITS/5 ML SUSPENSION UDCUP PO SCH ×2 (00:30→08:11)
[2021-12-10 06:58] VITALS: BP 98/40
[2021-12-10 08:10] VITALS: BP 97/41
[2021-12-10] MEDS: MULTIVITAMINS WITH MINERALS, THERAPEUTIC TABLET PO SCH (08:10)
[2021-12-10] MEDS: APIXABAN 2.5 MG TABLET PO SCH (08:10)
[2021-12-10] MEDS: ASPIRIN 81 MG CHEWABLE TABLET PO SCH (08:10)
[2021-12-10] MEDS: DOCUSATE SODIUM 100 MG CAPSULE PO SCH (08:11)
[2021-12-10] MEDS: THIAMINE 100 MG TABLET PO SCH (08:11)
[2021-12-10] MEDS: FAMOTIDINE 20 MG TABLET PO SCH (08:11)
[2021-12-10 13:53] VITALS: BP 93/36
[2021-12-10] MEDS ORDERED: MEGE40TA8 PO (13:59)
[2021-12-10] MEDS ORDERED: APIX2.5T PO (13:59)
[2021-12-10] MEDS ORDERED: ALBU8HFA IH (13:59)
[2021-12-10 15:43] VITALS: BP 105/52
[2021-12-10] MEDS ORDERED: MIRT-89 PO (19:32)
[2021-12-10] MEDS ORDERED: ASPI81 PO (19:32)
[2021-12-10] MEDS ORDERED: CHOL200016 PO (19:32)
[2021-12-10] MEDS ORDERED: SIMV-261 PO (19:32)
== END 2021-12-10 16:19 | disposition home or self-care (01) | DRG 177 ==
LOC: EMS 13:04 → 5N 18:54 → 5S 11-22 12:44 → 5N 11-22 13:24
PROVIDERS: ADMIT Internal Medicine; ATTEND Internal Medicine
PROC: 5A0955A Assistance with Respiratory Ventilation, Greater than 96 Consecutive Hours, High Flow/Velocity Cannula (ICD-10-PCS; principal; 2021-11-20)
PROC: XW033E5 Introduction of Remdesivir Anti-infective into Peripheral Vein, Percutaneous Approach, New Technology Group 5 (ICD-10-PCS; 2021-11-22)
PROC: 05HY33Z Insertion of Infusion Device into Upper Vein, Percutaneous Approach (ICD-10-PCS; 2021-11-24)
DX: U07.1 COVID-19 (principal); J96.01 Acute respiratory failure with hypoxia; J12.82 Pneumonia due to coronavirus disease 2019; J15.9 Unspecified bacterial pneumonia; D68.59 Other primary thrombophilia; I82.409 Acute embolism and thrombosis of unspecified deep veins of unspecified lower extremity; N17.9 Acute kidney failure, unspecified; E86.0 Dehydration; E78.00 Pure hypercholesterolemia, unspecified; I10 Essential (primary) hypertension; D72.810 Lymphocytopenia; E78.5 Hyperlipidemia, unspecified; F17.210 Nicotine dependence, cigarettes, uncomplicated; R79.82 Elevated C-reactive protein (CRP); R91.1 Solitary pulmonary nodule; Z79.899 Other long term (current) drug therapy; Z79.01 Long term (current) use of anticoagulants
CPT/HCPCS: 36245; 36569; 36600; 71045; 71250; 76937; 80048; 80053; 81001; 82550; 82728; 82805; 83605; 83615; 83735; 83880; 84100; 84132; 84145; 84484; 85018; 85025; 85379; 85384; 85610; 85730; 86140; 87040; 87449; 87804; 87899; 93005; 93306; 93970; 94660; 97116; 97162; 97530; 99291; J0295; J0456; J0696; J1100; J1644; J3535; J7030; J7050; J7060; J7120; Q9967; 36415-L1; 36415-TC; U0003